=== PATIENT | female | born 1970 | race Two or more races ===

== ENCOUNTER 2020-08-29 17:58 | Emergency (ER) | payer MEDICAID, OTHER ==
[~2020-08-29] VITALS: Ht 154.9 cm; Wt 95.3 kg
[2020-08-29 19:36] LABS: Basophils # (auto) 0 10 ^3/uL (0-0.2); Basophils % (auto) 0.5 % (0.0-2.0); Eosinophils # (auto) 0.1 10 ^3/uL (0-0.8); Eosinophils % (auto) 1.6 % (0.0-7.0); Hematocrit 41.6 % (36.0-46.0); Hemoglobin 13.7 g/dL (12.2-16.2); Lymphocytes # (auto) 1.6 10 ^3/uL (0.4-5.4); Lymphocytes % (auto) 18.8 % (10.0-50.0); Mean Corpuscular Hemoglobin 28.4 pg (28.0-32.0); Mean Corpuscular Hgb Conc. 32.9 g/dL (32.0-36.0); Mean Corpuscular Volume 86.2 fL (80.0-100.0); Monocytes # (auto) 0.7 10 ^3/uL (0-1.3); Monocytes % (auto) 7.7 % (0.0-12.0); Neutrophils # (auto) 6.2 10 ^3/uL (1.6-8.6); Neutrophils % (auto) 71.4 % (37.0-80.0); Nucleated Red Blood Cells % 0.1 %; Platelet Count (auto) 305 10^3/uL (140-450); Red Blood Cells 4.83 10^6/uL (4.0-5.20); Red Cell Distribution Width 14.6 % (11.8-14.3); White Blood Cell 8.7 10^3/uL (4.4-10.8)
[2020-08-29 19:48] VITALS: BP 144/84
[2020-08-29 19:49] LABS: Albumin 3.7 g/dL (3.4-5.0); Calcium 9.2 mg/dL (8.5-10.1); Potassium 3.4 mmol/L (3.5-5.1)
[2020-08-29 19:53] LABS: BUN/Creatinine Ratio 18.9; Bilirubin, Total 0.4 mg/dL (0.2-1.0); Total Protein 8.3 g/dL (6.4-8.2)
[2020-08-29 20:05] LABS: Urine Bacteria NONE SEEN /hpf (None Seen); Urine Blood Negative /uL (Negative); Urine Mucus FEW (None Seen); Urine Specific Gravity 1.018 (1.001-1.035); Urine WBC 3 /hpf (0 - 5)
== END 2020-08-29 20:53 | disposition home or self-care (01) ==
LOC: ER 17:58
DX: R42 Dizziness and giddiness (principal); F41.1 Generalized anxiety disorder; I10 Essential (primary) hypertension
CPT/HCPCS: 36415; 70450; 80053; 81001; 83735; 84443; 85025; 93005

== ENCOUNTER 2021-09-19 08:29 | Emergency (ER) | payer MEDICAID ==
[~2021-09-19] VITALS: Ht 154.9 cm; Wt 95.3 kg
[2021-09-19 09:10] VITALS: BP 165/96
[2021-09-19 09:40] LABS: Urine Bacteria FEW /hpf (None Seen); Urine Blood Negative /uL (Negative); Urine Specific Gravity 1.015 (1.001-1.035); Urine WBC 65 /hpf (0 - 5)
[2021-09-19] MEDS ORDERED: ACETAMINOPHEN 325 MG TAB PO ONE (10:30)
[2021-09-19] MEDS ORDERED: cefTRIAXone SOD 1,000 MG VL IM ONE (10:30)
== END 2021-09-19 10:55 | disposition home or self-care (01) ==
LOC: ER 08:29
DX: N39.0 Urinary tract infection, site not specified (principal); M54.50 Low back pain, unspecified; I10 Essential (primary) hypertension
CPT/HCPCS: 72100; 81001; 93005; 96372; 99285; J0696; J7040

== ENCOUNTER 2023-08-27 09:44 | Emergency (ER) | payer MEDICAID ==
[~2023-08-27] VITALS: Ht 154.9 cm; Wt 94.1 kg
[2023-08-27] MEDS ORDERED: ACET500T58 PO (13:57)
[2023-08-27] MEDS ORDERED: ZOFR4T PO (13:57)
[2023-08-27] MEDS ORDERED: METH-1181 PO (13:57)
[2023-08-27] MEDS ORDERED: ACETAMINOPHEN 500 MG TAB PO ONE (14:00)
[2023-08-27] MEDS ORDERED: DexAMETHasone SOD PHOS 10MG/1ML VIAL INJ PO ONE (14:00)
[2023-08-27 14:16] VITALS: BP 137/97; PULSE 78; RESP 16; TEMP 97.6; O2SAT 98
== END 2023-08-27 15:05 | disposition home or self-care (01) ==
LOC: ER 09:44
DX: U07.1 COVID-19 (principal); R11.0 Nausea; R19.7 Diarrhea, unspecified; I10 Essential (primary) hypertension
CPT/HCPCS: 99283; J1100

== ENCOUNTER 2024-12-04 17:44 | Emergency (ER) | payer MEDICAID ==
[~2024-12-04] VITALS: Ht 152.4 cm; Wt 94.4 kg
[~2024-12-04 17:44] MED LIST: ACET500T58 PO; METH-1181 PO; ZOFR4T PO
--- NOTE | 2024-12-04 18:54 | DVH ---
CLINICAL INDICATION: INJURY/PAIN TECHNIQUE: 3 radiographic views of the RIGHT WRIST were obtained. Comparison: None FINDINGS/IMPRESSION: There is no evidence of acute fracture or dislocation. The visualized joint space is well maintained. The alignment is anatomical. There is no radiopaque foreign body.
[2024-12-04 19:31] VITALS: BP 152/96; PULSE 74; RESP 18; TEMP 98.2; O2SAT 99
[2024-12-04] MEDS: HYDROcodone-ACET 5/325MG TAB PO ONE (19:34)
--- NOTE | 2024-12-04 19:35 | ED.PDOC ---
Back pain HPI HPI Comments PATIENT C/O RIGHT WRIST AND HAND PAIN X 2 DAYS S/P FALLING OUT OF ROLLING CHAIR. DENIES LOC. NUMBNESS, WEAKNESS, CHEST PAIN, DIFFICULTY BREATHING, SHORTNESS OF BREATH, NECK PAIN OR BACK PAIN. Chief Complaint: Upper Extremity Time Seen by MD: 18:25 Primary Care Provider: [place] Reviewed Notes: Nurses Notes, Medications, Allergies Allergies: Coded Allergies: No Known Drug Allergy (Verified Allergy, Unknown, 08/29/20) Home Meds Active Scripts Ondansetron Odt 4MG Tab (ZOFRAN PO) 4 Mg Tb, 4 MG PO BID for 5 Days, #10 TAB 0 Refills ODT TAB-DISSOLVE IN MOUTH, THEN SWALLOW Prov:GLENNY WADE NP 08/27/23 Methocarbamol (Methocarbamol) 500 Mg Tab, 500 MG PO QHSP PRN for 5 Days, #5 TAB 0 Refills Prov:GLENNY WADE NP 08/27/23 Acetaminophen (Acetaminophen) 500 Mg Tab, 1000 MG PO Q6HP PRN for 10 Days, #80 TAB 0 Refills Prov:GLENNY WADE NP 08/27/23 Information Source: Patient Mode of Arrival: Ambulatory Past Medical History PAST MEDICAL HISTORY: HTN Surgical History: Denies all surgeries 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: 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 Family History Family History: Reviewed,noncontributory to illness, Unknown Social History Smoker: Non-Smoker Alcohol: Denies ETOH Use Drugs: Denies Drug Use Lives In: Home Constitutional: denies: chills, diaphoresis, fatigue, fever, malaise, sweats, weakness, others EENTM: denies: blurred vision, double vision, ear bleeding, ear discharge, ear drainage, ear pain, ear ringing, eye pain, eye redness, hearing loss, mouth pain, mouth swelling, nasal discharge, nose bleeding, nose congestion, nose pain, photophobia, tearing, throat pain, throat swelling, voice changes, others Respiratory: denies: cough, hemoptysis, orthopnea, SOB at rest, shortness of breath, SOB with excertion, stridor, wheezing, others Cardiovascular: denies: chest pain, dizzy spells, diaphoresis, Dyspnea on exertion, edema, irregular heart beat, left arm pain, lightheadedness, palpitations, PND, syncope, others Gastrointestinal: denies: abdomen distended, abdominal pain, blood streaked bowels, constipated, diarrhea, dysphagia, difficulty swallowing, hematemesis, melena, nausea, poor appetite, poor fluid intake, rectal bleeding, rectal pain, vomiting, others Genitourinary: denies: abnormal vagina bleeding, burning, dyspareunia, dysuria, flank pain, frequency, hematuria, incontinence, pain, , vagina discharge, urgency, others Neurological: denies: dizziness, fainting, headache, left sided numbness, left sided weakness, numbness, paresthesia, pre-existing deficit, right sided numbness, right sided weakness, seizure, speech problems, tingling, tremors, weakness, others Musculoskeletal: reports: others (RIGHT WRIST PAIN); denies: back pain, gout, joint pain, joint swelling, muscle pain, muscle stiffness, neck pain Integumetry: denies: bruises, change in color, change in hair/nails, dryness, laceration, lesions, lumps, rash, wounds, others Allergic/Immunocompromised: denies: Difficulty Healing, Frequent Infections, Hives, Itching, others Hematologic/Lymphatic: denies: anemia, blood clots, easy bleeding, easy bruising, swollen glands, others Endocrine: denies: excessive hunger, excessive sweating, excessive thirst, excessive urination, flushing, intolerance to cold, intolerance to heat, unexplained weight gain, unexplained weight loss, others Psychiatric: denies: anxiety, bipolar disorder, depression, hopeless, panic disorder, schizophrenia, sleepless, suicidal, others Physical Exam General Appearance: No Apparent Distress, Normal HEENT: Normal ENT Inspection, Pharynx Normal, TMs Normal Neck: Full Range of Motion, Non-Tender Respiratory: Lungs Clear, No Respiratory Distress, Normal Breath Sounds Cardiovascular: No Edema, No JVD, No Murmur, No Gallop, Normal Peripheral Pulses, Regular Rate/Rhythm Breast Exam: Deferred Gastrointestinal: No Organomegaly, Non Tender, No Pulsatile Mass, Normal Bowel Sounds, Soft Genitalia: Deferred Pelvic: Deferred Rectal: Deferred Extremities: Normal capillary refill, Normal inspection, Normal range of motion, Non-tender, No pedal edema Musculoskeletal : Location: Right Extremity Location: Wrist (NOTED TRACE EDEMA MEDIAL ASPECT OF RIGHT WRIST WITH MODERATE TENDERNESS ON PALPATION NO NOTED ECCHYMOSIS, ABRASIONS, OR LACERATIONS. SENSORY AND MOTION INTACT POSITIVE RADIAL PULSE.) Apperance: Normal Neurologic: Alert, verifying specialist II-XII nml as Tested, No Motor Deficits, Normal Affect, Normal Mood, No Sensory Deficits Cerebellar Function: Normal Reflexes: Normal Skin: Dry, Normal Color, Warm Lymphatic: No Adenopathy Was a procedure done? Was a procedure done?: No Back Pain Differential Dx Differential Diagnosis: Fracture, Musculoskeletal Pain X-Ray, Labs, Meds, VS Vital Signs Date Time Temp Pulse Resp B/P (MAP) Pulse Ox O2 Delivery O2 Flow Rate FiO2 12/04/24 18:00 97.1 83 18 141/90 (107) 98 X-Ray, Labs, Meds, VS Comment RIGHT WRIST X-RAY REVIEWED SHOWS NO ACUTE FRACTURES, DISLOCATIONS, OR OSSEOUS LESIONS. PATIENT GIVEN NORCO 5 MG P.O. FOR THE PAIN. PATIENT PLACED IN RIGHT WRIST VELCRO SPLINT FOR COMFORT. ADVISED ON RICE. [id number]-[id number] TYLENOL OR MOTRIN NEEDED FOR THE PAIN. WITH YOUR PCP IN 2-3 DAYS CONSIDER REPEAT X-RAY OR FURTHER IMAGING SUCH MRI FOR PERSISTENT SYMPTOMS. ADVISED ON ER RETURN PRECAUTIONS PATIENT INDICATES UNDERSTANDING AGREES WITH DISCHARGE PLAN OF CARE Time of 1ST Reevaluation: 19:33 Reevaluation 1ST: Improved Patient Education/Counseling: Diagnosis, Treatment, Prognosis, Need For Follow Up Family Education/Counseling: No Family Present Departure 1 Departure Time of Disposition: 19:34 Impression: Primary Impression: Sprain of wrist, right Qualified Codes: S63.501A - Unspecified sprain of right wrist, initial encounter Disposition: HOME / SELF CARE / HOMELESS Condition: Stable Discharged With: Relative (Father) Critical Care Note Critical Care Time?: No Stability Stability form required: REI Stratton Dec 04, 2024 19:35
== END 2024-12-04 20:12 | disposition home or self-care (01) ==
LOC: ER 17:44
DX: S63.501A Unspecified sprain of right wrist, initial encounter (principal); I10 Essential (primary) hypertension; Z79.899 Other long term (current) drug therapy; W07.XXXA Fall from chair, initial encounter; Y93.89 Activity, other specified; Y92.89 Other specified places as the place of occurrence of the external cause; Y99.8 Other external cause status
CPT/HCPCS: 29125; 73110